=== PATIENT | male | born 1965 | race Caucasian/White ===

== ENCOUNTER 2017-10-21 12:44 | Emergency (ER) | payer OTHER, BC ==
[~2017-10-21] VITALS: Ht 177.8 cm; Wt 109.7 kg
[~2017-10-21 12:44] MED LIST: BABY ASPIRIN81 M1 PO; BACTRIM,SEPT1 TABLET PO; CELEBREX200 MG PO; CLEOCIN300 MG PO; CO Q-1050 MG PO; COENZYME Q10; CYMBALTA30 MG PO; ELAVIL10 MG PO; JANUMET 50/11 TABLET PO; KEFLEX500 MG PO; LEVEMIR FL100 UNIT/1 SC; LEVEMIR FL100 UNITS/ SC; LIPITOR40 MG PO; LO-DOSE ASPIRIN81 M1 PO; LYRICA150 MG PO; MELOXICAM15 MG PO; METFORMIN HCL1000 MG PO; NORVASC5 MG PO; NOVOLOG 10100 UNITS/ SC; NOVOLOG PE100 UNITS/ SC; PANTOPRAZOLE SO40 MG PO; PLAVIX75 MG PO; PRILOSEC40 MG PO; PROTONIX40 MG PO; TYLENOL EXTRA500 MG PO; VENTOLIN HFA18 GM IH
[2017-10-21 15:24] VITALS: BP 148/94
== END 2017-10-21 15:24 | disposition home or self-care (01) ==
LOC: EME 12:44
DX: S39.012A Strain of muscle, fascia and tendon of lower back, initial encounter (principal); V43.52XA Car driver injured in collision with other type car in traffic accident, initial encounter; E11.9 Type 2 diabetes mellitus without complications; I10 Essential (primary) hypertension
CPT/HCPCS: 99281; 99282